=== PATIENT | female | born 1965 | race Caucasian/White ===

== ENCOUNTER 2016-06-23 12:38 | Emergency (ER) | payer OTHER ==
[~2016-06-23] VITALS: Ht 154.9 cm; Wt 61.7 kg
[~2016-06-23 12:38] MED LIST: CYCLOBENZAPRINE10 M1 PO; VICODIN 5-3001 EACH PO
[2016-06-23 14:07] LABS: ABSOLUTE BASOPHIL COUNT 0 /CUMM (0.0-0.2); ABSOLUTE EOSINOPHIL COUNT 0 /CUMM (0.0-0.7); ABSOLUTE LYMPH COUNT 1.2 /CUMM (1.2-3.4); ABSOLUTE MONOCYTE COUNT 0.3 /CUMM (0.10-0.60); BASOPHIL % 0.1 % (0.0-2.0); EOSINOPHIL % 0.3 % (0-5); HEMATOCRIT 43.3 % (37-47); MEAN CORPUSCULAR HGB 29.6 PG (27.0-31.0); MEAN CORPUSCULAR VOLUME 89.8 FL (81.0-99.0); MEAN PLATELET VOLUME 9.9 FL (7.4-10.4); PLATELET COUNT 153 /CUMM (130-400); RBC DISTRIBUTION WIDTH 13.3 % (11.5-14.5); RED BLOOD CELL CT 4.82 /CUMM (4.20-5.40); WHITE BLOOD CELL COUNT 10.6 /CUMM (4.8-10.8)
--- NOTE | 2016-06-23 15:22 | ED GI/GU/ABDOMINAL COMPLAINT ---
History of Present Illness General Chief Complaint: Abdominal Pain/Flank Pain Stated Complaint: L FLANK PAIN Source: patient, family, old records Exam Limitations: no limitations Vital Signs & Intake/Output Vital Signs & Intake/Output Vital Signs Date Time Temp Pulse Resp B/P Pulse O2 O2 Flow FiO2 Ox Delivery Rate 06/23 1624 97.7 84 18 118/76 97 Room Air 06/23 1449 97.2 80 18 120/76 97 Room Air 06/23 1428 100 Room Air 06/23 1244 97.2 85 20 115/79 96 Room Air Allergies Coded Allergies: prednisone (RASH 11/25/15) Reconcile Medications No Known Home Medications Triage Note: C/O PAIN UNDER LEFT RIBCAGE, MUSCLE WEAKNESS, EXCESSIVE BURPING, NO APPETITE AND WEIGHT LOSS X 2 WEEKS Triage Nurses Notes Reviewed? yes LMP (ages 10-50): unknown ? n Is pt currently ? No Onset: 2 weeks Duration: week(s):, continues in ED, getting worse, waxing and waning Timing: recent history Quality/Severity: aching, cramping, moderate, severe Location: left upper quadrant Radiation: no radiation Activities at Onset: eating Prior Abdominal Problems: none Past Sexual History: Unobtainable at this time Modifying Factors: Worsens With: eating. Associated Symptoms: abdominal pain, diarrhea, loss of appetite, nausea/vomiting HPI: 2 weeks prior to admission patient complains of left quadrant pain described as achy crampy moderate to severe nonradiating worse after eating associated with nausea weight loss and anorexia frequent loose watery stool. She denies fever chills chest pain cough shortness of breath headache dysuria rash bleeding Past History Travel History Traveled to [place] past 21 day No Medical History Any Pertinent Medical History? see below for history Neurological: NONE EENT: NONE Cardiovascular: NONE Respiratory: NONE Gastrointestinal: gastric polyps Hepatic: NONE Renal: NONE Musculoskeletal: NONE Psychiatric: NONE Endocrine: NONE Blood Disorders: coagulopathy (mom with PE) Cancer(s): NONE Surgical History Surgical History: non-contributory Psychosocial History What is your primary language Bengali Tobacco Use: Never used ETOH Use: occasional use Illicit Drug Use: denies illicit drug use Family History Hx Contributory? No Review of Systems Review of Systems Constitutional: Reports: see HPI, weakness. EENTM: Reports: no symptoms. Respiratory: Reports: no symptoms. Cardiovascular: Reports: no symptoms. GI: Reports: see HPI, abdominal pain, diarrhea, nausea. Genitourinary: Reports: no symptoms. Musculoskeletal: Reports: no symptoms. Skin: Reports: no symptoms. Neurological/Psychological: Reports: no symptoms. Hematologic/Endocrine: Reports: no symptoms. Immunologic/Allergic: Reports: no symptoms. All Other Systems: Reviewed and Negative Physical Exam Physical Exam General Appearance: well developed/nourished, alert, awake, anxious, moderate distress, thin Head: atraumatic, normal appearance Eyes: Bilateral: normal appearance, PERRL, EOMI, normal inspection. Ears, Nose, Throat, Mouth: hearing grossly normal, dry mucous membranes Neck: normal inspection, supple, full range of motion, normal alignment Respiratory: normal breath sounds, chest non-tender, no respiratory distress, quiet respiration, lungs clear Cardiovascular: regular rate/rhythm, normal peripheral pulses, norml femoral pulses equa Peripheral Pulses: 4+ carotid (R), 4+ carotid (L) Gastrointestinal: normal bowel sounds, soft, non-tender, no organomegaly Back: normal inspection, normal range of motion Extremities: normal range of motion, no ligament instability Neurologic/Psych: no motor/sensory deficits, awake, alert, oriented x 3, normal gait, 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 No Severe Sepsis Present: No Septic Shock Present: No Progress Differential Diagnosis: gastritis, ischemic bowel, pancreatitis, UTI/pyelo Plan of Care: Orders Procedure Date/time Status Add-on Test (ER Only) 06/23 1436 Active URINE 06/23 1340 Complete URINALYSIS 06/23 1330 Complete LIPASE 06/23 1330 Complete COMPREHENSIVE METABOLIC PANEL 06/23 1330 Complete CBC WITHOUT DIFFERENTIAL 06/23 1330 Complete Laboratory Tests 06/23/16 1347: Anion Gap 12, Estimated GFR > 60, BUN/Creatinine Ratio 18.3, Glucose 93, Calcium 10.1, Total Bilirubin 0.7, AST 30, ALT 35, Alkaline Phosphatase 66, Total Protein 7.8, Albumin 4.9, Globulin 2.9, Albumin/Globulin Ratio 1.7, Lipase 101, CBC w Diff MAN DIFF ORDERED, RBC 4.82, MCV 89.8, MCH 29.6, RDW 13.3, MPV 9.9, Gran % 85.0 H, Lymphocytes % 11.6 L, Monocytes % 3.0, Eosinophils % 0.3, Basophils % 0.1, Absolute Granulocytes 9.0 H, Absolute Lymphocytes 1.2, Absolute Monocytes 0.3, Absolute Eosinophils 0, Absolute Basophils 0, Platelet Estimate VERIFIED BY SMEAR, Normocytic RBCs VERIFIED, Normochromic RBCs VERIFIED , PUBS MCHC 33.0 06/23/16 1340: Urine Color STRAW, Urine Clarity CLEAR, Urine pH 6.0, Ur Specific [place] <= 1.005, Urine Protein NEG, Urine Ketones NEG, Urine Nitrite NEG, Urine Bilirubin NEG, Urine Urobilinogen 0.2, Ur Leukocyte Esterase LARGE H, Ur Microscopic SEDIMENT EXAMINED, Urine RBC RARE, Urine WBC 25-50 H, Ur Epithelial Cells MOD H, Urine Bacteria MOD H, Urine Hemoglobin TRACE-LYSED, Urine Glucose NEG, Urine Test NEGATIVE Diagnostic Imaging: Viewed by Me: CT Scan. Discussed w/RAD: CT Scan. Radiology Impression: 1. No acute findings within the abdomen or pelvis to explain patient symptomatology. 2. No significant atherosclerosis of the imaged abdominal aorta or its branching vessels. 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 This finding is nonspecific but can be seen in the setting of median arcuate ligament syndrome. There is also less than 10% minimal narrowing at the origin of the superior mesenteric artery. The abdominal aorta and its branching vessels are otherwise normal in caliber and patent and opacified by intravenous contrast. There are no centrally displaced intraluminal flaps to suggest dissection. 3. No bowel wall pneumatosis or portal venous air. No secondary signs of mesenteric ischemia. Nevertheless, recommend correlation with patient clinical symptoms and correlation with lab values. 4. Scattered colonic diverticulosis, without secondary signs of acute diverticulitis. 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
--- NOTE | 2016-06-23 15:54 | CT SCAN REPORT ---
EXAMINATION: CT ANGIOGRAM ABDOMEN AND PELVIS CLINICAL INFORMATION: Abdominal pain with history of clotting disorder. COMPARISON: None. TECHNIQUE: Multiple axial images were obtained through the abdomen and pelvis following the administration of 94 mL of Optiray 320 intravenous contrast. 2-D coronal and sagittal reformatted images were obtained at the acquisition workstation. 3-D post processing imaging was not performed. DLP: 507 mGy-cm FINDINGS: VASCULAR: Adequate contrast opacification of the arterial vasculature. There is no significant atherosclerosis of the imaged abdominal aorta or its branching vessels. There is approximately 40% luminal narrowing of the celiac artery at its origin with poststenotic dilatation. This finding is nonspecific but can be seen in the setting of median arcuate ligament syndrome. Also noted is less than 10% luminal narrowing of the superior mesenteric artery at its origin. Branching vessels of the abdominal aorta including the celiac artery, superior mesenteric artery, inferior mesenteric artery bilateral renal arteries as well as the bilateral common iliac arteries are otherwise patent and opacified by intravenous contrast. There are no centrally displaced intraluminal flaps within these vessels to suggest dissection. With the exception of the celiac artery, these vessels are also normal in caliber, without aneurysmal dilatation. Incidental note is made of bilateral accessory arteries supplying the upper poles of the bilateral kidneys. There is limited evaluation of the abdominal and pelvic venous vasculature given phase of contrast imaging. NONVASCULAR: Limited evaluation of the solid abdominal viscera secondary to phase of contrast imaging. LUNG BASES: The included lung bases appear unremarkable. LIVER, GALLBLADDER, AND BILIARY TREE: The liver is normal in size, shape, and attenuation. No hypervascular hepatic lesions or biliary ductal dilatation is present. The gallbladder is unremarkable with no evidence of radiopaque gallstones, gallbladder wall thickening, or obvious pericholecystic inflammatory changes. PANCREAS: No hypervascular pancreatic lesions are identified and there are no significant peripancreatic inflammatory changes or fluid collections. SPLEEN: Multiple small splenules are identified. The spleen otherwise appears unremarkable. ADRENAL GLANDS: Unremarkable. KIDNEYS AND URETERS: Symmetric enhancement of the bilateral kidneys which are normal in size, shape and attenuation. Limited evaluation for renal and ureteral stones given excreted contrast material within the bilateral renal collecting systems. The kidneys are normal in size, shape and contour. No focal parenchymal lesions are identified. There is symmetric excretion of contrast from the bilateral kidneys. There is no appreciable hydroureteronephrosis of either kidney or renal collecting system. BLADDER: Moderately distended but otherwise unremarkable. GASTROINTESTINAL TRACT: Normal anatomic orientation of the stomach relative to the duodenum. Normal caliber of abdominal and pelvic bowel loops, without evidence of obstruction or ileus. No circumferential bowel wall thickening with surrounding inflammatory changes to suggest an underlying infectious, inflammatory or ischemic enterocolitis. No bowel wall pneumatosis or portal venous air is identified. There is scattered colonic diverticulosis, without secondary signs of acute diverticulitis. Normal-appearing appendix within the right lower quadrant of the abdomen. No organizing intra-abdominal fluid collections or free intraperitoneal air. ABDOMINAL WALL: No significant hernia is appreciated. LYMPH NODES: No significant abdominal or pelvic adenopathy. PELVIC VISCERA: Uterus is lobular in contour. No adnexal masses are identified. OSSEOUS STRUCTURES: No acute osseous abnormality. Normal alignment of the imaged thoracolumbar spine. No destructive osseous lesions. IMPRESSION: 1. No acute findings within the abdomen or pelvis to explain patient symptomatology. 2. No significant atherosclerosis of the imaged abdominal aorta or its branching vessels. 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 This finding is nonspecific but can be seen in the setting of median arcuate ligament syndrome. There is also less than 10% minimal narrowing at the origin of the superior mesenteric artery. The abdominal aorta and its branching vessels are otherwise normal in caliber and patent and opacified by intravenous contrast. There are no centrally displaced intraluminal flaps to suggest dissection. 3. No bowel wall pneumatosis or portal venous air. No secondary signs of mesenteric ischemia. Nevertheless, recommend correlation with patient clinical symptoms and correlation with lab values. 4. Scattered colonic diverticulosis, without secondary signs of acute diverticulitis.
[2016-06-23 16:24] VITALS: BP 118/76
[2016-06-23] MEDS ORDERED: REGLAN10 M1 PO (16:27)
[2016-06-23] MEDS ORDERED: LEVSIN-SL0.125 MG SL (16:27)
[2016-06-23] MEDS ORDERED: PEPCID40 MG/5 ML PO (16:27)
[2016-06-23] MEDS ORDERED: CEPHALEXIN250 MG/51 PO (16:27)
== END 2016-06-23 16:58 ==
LOC: ERH 12:38
PROVIDERS: Emergency Medicine
DX: K29.70 Gastritis, unspecified, without bleeding (principal); N39.0 Urinary tract infection, site not specified; B97.19 Other enterovirus as the cause of diseases classified elsewhere
CPT/HCPCS: 74174; 81001; 81025; 96374; 96375; J2765